=== PATIENT | male | born 1995 | race Caucasian/White ===

== ENCOUNTER 2025-09-27 14:02 | Emergency (ER) | payer OTHER, SELFPAY ==
[2025-09-27 14:09] VITALS: BP 121/79; PULSE 95; RESP 20; TEMP 37; O2SAT 99; BMI 28.5
[2025-09-27 14:57] LABS: COVID-19 CEPHEID 4-PLEX PCR Negative (Negative); Influenza A - CEPHEID Flu A POSITIVE (NEGATIVE); Influenza B - CEPHEID Flu B NEGATIVE (NEGATIVE)
--- NOTE | 2025-09-27 15:06 | ED.GENADULT ---
HPI - General Adult General Chief complaint: Fever Stated complaint: High fever t+2days, sore throat, ear pain Time Seen by Provider: 09/27/25 15:00 Source: patient Mode of arrival: Ambulatory History of Present Illness HPI narrative: This is a 30-year-old white male who presents with 2 days of nasal congestion cough diarrhea myalgias arthralgias. Patient denied chest pain shortness of breath or dysuria. Related Data Previous Rx's ?Medication ?Instructions ?Recorded baloxavir marboxil 80 mg tablet 80 mg PO .once #1 tab 09/27/25 (Xofluza) Allergies Allergy/AdvReac Type Severity Reaction Status Date / Time No Known Allergies Allergy Verified 09/27/25 14:14 Review of Systems Review of Systems Narrative: GENERAL: See HPI HEENT: Denies sinus pain, ear pain, sore throat, difficulty swallowing, dizziness. RESPIRATORY: Denies dyspnea, cough, wheezing, hemoptysis, sputum. CARDIOVASCULAR: Denies chest pain, palpitations, orthopnea, edema, GASTROINTESTINAL: Denies nausea, vomiting, abdominal pain, diarrhea, constipation, melena. : Denies dysuria, frequency, incontinence, hematuria, urinary retention. MUSCULOSKELETAL: denies weakness, joint pain, or bony pain SKIN: Denies rash, skin lesions, or other NEUROLOGIC: Denies weakness, headache, numbness, change in speech, confusion, seizures, incoordination. PSYCHIATRIC: No concerning psychosocial issues. 12 point review of systems is negative except for those stated above Patient History Smoking Status: Never smoker Exam Narrative Exam Narrative: GENERAL: [] year old patient appears stated age. Well-developed patient, in mild distress. HEAD: Atraumatic. Normocephalic. EYES: Pupils equal round and reactive. Extraocular motions intact. No scleral icterus. No injection or drainage. ENT: Nose without bleeding, purulent drainage. Throat without erythema, tonsillar hypertrophy or exudate. Airway patent. NECK: Trachea midline. Non tender CARDIOVASCULAR: Regular rate and rhythm without murmurs, gallops, or rubs. RESPIRATORY: Clear to auscultation. Breath sounds equal bilaterally. No wheezes, rales, or rhonchi. GASTROINTESTINAL: Abdomen soft, non-tender, nondistended. EXTREMITIES: No edema or joint tenderness. BACK: Nontender without deformity or crepitance. No flank tenderness. NEURO: AOx3. SKIN: No rash or erythema of visible areas Initial Vital Signs Initial Vital Signs: Vital Signs Temperature 98.6 F 09/27/25 14:09 Pulse Rate 95 H 09/27/25 14:09 Respiratory Rate 20 09/27/25 14:09 Blood Pressure 121/79 09/27/25 14:09 Pulse Oximetry 99 09/27/25 14:09 Oxygen Delivery Method Room Air 09/27/25 14:09 Course Orders Ordered: ED Orders 09/27/25 14:15 Covid-19 + FLU A/B + RSV - PCR Stat Vital Signs Vital signs: Vital Signs - 8 hr 09/27/25 14:09 Temperature 98.6 F Pulse Rate 95 H Respiratory Rate 20 Blood Pressure 121/79 Pulse Oximetry 99 Oxygen Delivery Method Room Air Medical Decision Making Medical Records Medical records narrative: Patient was positive influenza A negative for COVID or RSV. The symptoms have been going on less than 48 hours so I will discharge the patient home with prescription for xofluza and then he is to take symptomatic relief such as antipyretics and anti-inflammatories. Differential diagnosis is flu COVID viral URI Lab Data Labs: Lab Results 09/27/25 Range/Units 14:15 SARS-CoV-2 (PCR) Negative (Negative) Influenza A (RT-PCR) Flu a positive H (NEGATIVE) Influenza B (RT-PCR) Flu b negative (NEGATIVE) RSV (PCR) Negative (Negative) Discharge Plan Departure Patient Disposition: Home Clinical Impression: Influenza Instructions: Influenza Prescriptions: New Xofluza 80 mg tablet 80 mg PO .once Qty: 1 0RF Stand Alone Forms: Patient Portal/API
[2025-09-27 15:22] VITALS: BP 129/69; PULSE 95; RESP 16; O2SAT 100
== END 2025-09-27 15:23 | disposition home or self-care (01) ==
PROVIDERS: Emergency Provider Emergency Medicine
DX: J10.1 Influenza due to other identified influenza virus with other respiratory manifestations (principal); H92.09 Otalgia, unspecified ear
CPT/HCPCS: 87637; 99281; 99282